=== PATIENT | female | born 1955 | race Caucasian/White ===

== ENCOUNTER 2016-11-28 14:09 | Emergency (ER) | payer OTHER ==
[2016-11-28] MEDS ORDERED: Ondansetron 4 MG/2 ML SDV IVPUSH ONE (14:41)
[2016-11-28] MEDS ORDERED: Sodium Chloride 0.9% 10 ML Syringe FLUSH PRN (14:41)
[2016-11-28] MEDS ORDERED: LORazepam 2 MG/ML MDV IVPUSH ONE (14:41)
[2016-11-28] MEDS ORDERED: HYDROmorphone 0.5 MG/0.5 ML Syringe IVPUSH ONE (14:41)
[2016-11-28] MEDS ORDERED: Sodium Chloride 0.9% 1,000 ML IV SCH (14:45)
--- NOTE | 2016-11-28 14:49 | EDM.PDOC ---
ED HISTORY OF PRESENT ILLNESS - General Chief Complaint: Cardiovascular Problem Stated Complaint: HIGH BP/HEADACHE Time Seen by Provider: 11/28/16 14:22 Source of Information: Reports: Patient History Limitations: Reports: No limitations - History of Present Illness INITIAL COMMENTS - FREE TEXT/NARRATIVE: Patient is a 61-year-old female who presents ED complaining of a headache, blurred vision, and left ear pain. Patient states she's been evaluated by her primary care provider yesterday for off and on cough since March of 2016. States they obtained a chest x-ray yesterday that was normal. They prescribed her oral prednisone and also albuterol inhaler. States they checked her blood pressure and noticed it to be elevated. This morning developed a headache described as moderate to severe located in the frontal aspect of her head that has now shifted back to the occipital region. She's had some mild blurred vision associated with the headache. In addition she has some throbbing sensation noted to the left ear. Pain is rated 8/10. She has no prior history of headaches. She states she never gets a headache. Describes his headache is the worst headache he's ever had. Denies any neuro deficits. States her eyes are sensitive to light and she's also mildly sensitive to noise. She's had no issues with walking, weakness, numbness or tingling, fever, chest pain, abdominal pain, diarrhea, or any additional complaints. Patient has a past medical history of hyperthyroidism and acid reflux. Patient takes omeprazole and levothyroxine as well albuterol and prednisone. Surgical history colonoscopy EGD, bladder surgery Primary care provider is Dr. Gonzalez. Timing/Duration: Reports: Constant Severity: severe Location, General: Reports: head (Occipital) Quality: Reports: Ache, Throbbing Improves with: Reports: None Worsens with: Reports: None Context, General: Reports: Other (None) Associated Symptoms (General): Reports: cough (Chronic cough for the past few months. Evaluated by primary care provider yesterday placed on prednisone and albuterol inhaler. No worsening today.), nausea/vomiting (Mild nausea after taking albuterol inhaler). Denies: chest pain, diaphoresis, fever/chills, loss of appetite, shortness of breath, syncope, weakness Treatments MANAGER RISK MANAGEMENT: Reports: Other (see below) (none stated) - Related Data Allergies/ADRs: Allergies Allergy/AdvReac Type Severity Reaction Status Date / Time acetaminophen [From Percocet] Allergy Hives Verified 11/28/16 14:21 cephalexin Allergy Shortness Verified 11/28/16 14:21 of Breath codeine Allergy Hives Verified 11/28/16 14:21 Latex, Natural Rubber Allergy Hives Verified 11/28/16 14:21 oxycodone HCl [From Percocet] Allergy Hives Verified 11/28/16 14:21 Sulfa (Sulfonamide Allergy Hives Verified 11/28/16 14:21 Antibiotics) Home Meds: Home Meds Levothyroxine 75 mcg PO DAILY 04/28/15 [History] Albuterol Sulfate [Proair Hfa] 2 puff INH Q4H PRN 11/28/16 [History] Prednisone [IJD: predniSONE] 40 mg PO DAILY 11/28/16 [History] Ranitidine [Zantac] 150 mg PO BEDTIME 11/28/16 [History] Social & Family History - Tobacco Use Smoking Status *Q: Never Smoker Second Hand Smoke Exposure: No - Alcohol Use Days Per Week of Alcohol Use: 0 - Recreational Drug Use Recreational Drug Use: No ED ROS GENERAL - Review of Systems Review Of Systems: See Below Constitutional: Denies: fever, chills, decreased appetite HEENT: Reports: Ear pain (left ear throbbing with onset of headache), Vision change (mild blurred vision). Denies: Eye pain Respiratory: Reports: Cough, Sputum. Denies: Shortness of Breath Cardiovascular: Denies: Chest pain, Blood pressure problem (no history), Dyspnea on exertion, Lightheadedness, Orthopnea, Palpitations, PND, Syncope GI/Abdominal: Reports: Nausea. Denies: Abdominal pain, Constipation, Diarrhea, Vomiting : Reports: no symptoms Musculoskeletal: Denies: neck pain, back pain Neurological: Reports: Headache. Denies: Confusion, Dizziness, Numbness, Paresthesia, Tingling, Trouble Speaking, Difficulty Walking, Weakness, Gait Disturbance ED EXAM, GENERAL - Physical Exam Exam: See Below Exam Limited By: No limitations General Appearance: alert, WD/WN, mild distress Eye Exam: bilateral eye: EOMI, PERRL Ears: normal external exam, normal canal, hearing grossly normal, normal TMs Nose: normal inspection, normal mucosa, no blood Throat/Mouth: Normal inspection, Normal oropharynx, Normal voice, No airway compromise Neck: normal inspection, supple, non-tender, full range of motion. No: lymphadenopathy (L), lymphadenopathy (R) Respiratory/Chest: no respiratory distress, lungs clear, normal breath sounds, no accessory muscle use Cardiovascular: normal peripheral pulses, regular rate, rhythm, no murmur Peripheral Pulses: 2+: radial (L), radial (R) GI/Abdominal: normal bowel sounds, soft, non tender, no organomegaly, no distention Extremities: normal inspection, normal range of motion, non-tender, no pedal edema Neurological: alert, oriented, CN II-XII intact, normal cognition, normal gait, no motor/sensory deficits, other (cerebellar function intact. no weakness note to upper/lower extremities. no facial droop/slurred speech. ) Psychiatric: normal affect, normal mood Skin Exam: Warm, Dry, Intact, Normal color, No rash Course - Vital Signs Last Recorded V/S: Last Vital Signs Temp 98.6 F 11/28/16 14:20 Pulse 82 11/28/16 14:20 Resp 26 H 11/28/16 14:20 BP 173/99 H 11/28/16 14:20 Pulse Ox 98 11/28/16 14:20 - Orders/Labs/Meds Orders: Active Orders 24 hr Category Date Time Status EKG Documentation Completion [RC] STAT Care 11/28/16 14:40 Active Peripheral IV Care [RC] . DIRECTED Care 11/28/16 14:41 Active UA W/MICROSCOPIC [URIN] Stat Lab 11/28/16 15:34 Uncollected Sodium Chloride 0.9% [Normal Saline] 1,000 ml Med 11/28/16 14:45 Active IV ASDIRECTED Sodium Chloride 0.9% [Saline Flush] Med 11/28/16 14:41 Active 10 ml FLUSH ASDIRECTED PRN Peripheral IV Insertion Adult [OM.PC] Stat Oth 11/28/16 14:40 Ordered Medication Orders Sodium Chloride (Normal Saline) 1,000 mls @ 50 mls/hr IV ASDIRECTED MICHELLE Last Admin: 11/28/16 15:11 Dose: 50 mls/hr Sodium Chloride (Saline Flush) 10 ml FLUSH ASDIRECTED PRN PRN Reason: Keep Vein Open Last Admin: 11/28/16 14:50 Dose: 10 ml Labs: Laboratory Tests 11/28/16 11/28/16 11/28/16 Range/Units 14:50 14:50 14:50 WBC 16.87 H (3.98-10.04) K/mm3 RBC 5.36 H (3.98-5.22) M/mm3 Hgb 14.7 (11.2-15.7) gm/L Hct 45.6 H (34.1-44.9) % MCV 85.1 (79.4-94.8) fl MCH 27.4 (25.6-32.2) pg MCHC 32.2 (32.2-35.5) g/dl RDW Std Deviation 46.3 (36.4-46.3) fL Plt Count 345 (182-369) K/mm3 MPV 9.3 L (9.4-12.3) fl Neut % (Auto) 79.3 H (34.0-71.1) % Lymph % (Auto) 13.2 L (19.3-51.7) % [place] % (Auto) 5.5 (4.7-12.5) % Eos % (Auto) 0.1 L (0.7-5.8) Baso % (Auto) 0.1 (0.1-1.2) % Neut # (Auto) 13.39 H (1.56-6.13) K/mm3 Lymph # (Auto) 2.23 (1.18-3.74) K/mm3 [place] # (Auto) 0.92 H (0.24-0.36) K/mm3 Eos # (Auto) 0.01 L (0.04-0.36) K/mm3 Baso # (Auto) 0.02 (0.01-0.08) K/mm3 Manual Slide Review Abnormal smear Sodium 141 (136-145) mEq/L Potassium 4.0 (3.5-5.1) mEq/L Chloride 104 (98-107) mEq/L Carbon Dioxide 24 (21-32) mEq/L Anion Gap 17.0 H (5-15) BUN 19 H (7-18) mg/dL Creatinine 0.9 (0.55-1.02) mg/dL Est Cr Clr Drug Dosing 59.07 mL/min Estimated GFR (MDRD) > 60 (>60) mL/min BUN/Creatinine Ratio 21.1 H (14-18) Glucose 125 H (80-115) mg/dL Calcium 9.7 (8.5-10.1) mg/dL Total Bilirubin 0.2 (0.2-1.0) mg/dL AST 14 L (15-37) U/L ALT 36 (14-59) U/L Alkaline Phosphatase 124 H (46-116) U/L Troponin I < 0.017 (0.00-0.056) ng/mL C-Reactive Protein 1.1 H* (<1.0) mg/dL Total Protein 7.9 (6.4-8.2) g/dl Albumin 3.9 (3.4-5.0) g/dl Globulin 4.0 gm/dL Albumin/Globulin Ratio 1.0 (1-2) TSH 3rd Generation 0.457 (0.358-3.74) uIU/mL Meds: Medications Generic Name Dose Route Start Last Admin Trade Name Freq PRN Reason Stop Dose Admin Sodium Chloride 1,000 mls @ 50 mls/hr 11/28/16 14:45 11/28/16 15:11 Normal Saline IV 50 mls/hr ASDIRECTED MICHELLE Administration Sodium Chloride 10 ml 11/28/16 14:41 11/28/16 14:50 Saline Flush FLUSH 10 ml ASDIRECTED PRN Administration Keep Vein Open Discontinued Medications Generic Name Dose Route Start Last Admin Trade Name Freq PRN Reason Stop Dose Admin Hydromorphone HCl 0.25 mg 11/28/16 14:41 11/28/16 15:09 Dilaudid IVPUSH 11/28/16 14:42 0.25 mg ONETIME ONE Administration Lorazepam 0.5 mg 11/28/16 14:41 11/28/16 15:07 Ativan IVPUSH 11/28/16 14:42 0.5 mg ONETIME ONE Administration Ondansetron HCl 4 mg 11/28/16 14:41 11/28/16 15:05 Zofran IVPUSH 11/28/16 14:42 4 mg ONETIME ONE Administration - Re-Assessments/Exams Free Text/Narrative Re-Assessment/Exam: Order peripheral IV with normal saline 50 mL per hour, Zofran 4 mg IVP, Dilaudid 0.25 mg IVP, and Ativan 0.5 mg IVP. Initial labs and studies include CBC, chem 14, CRP, troponin, EKG , and head CT without contrast. EKG revealed sinus rhythm 181 with normal P axis, no acute ST changes noted. 11/28/16 15:19 vital signs 150/93, heart rate 83. Reassessment, headache has improved with the above therapies. 11/28/16 15:34 CT head without contrast reviewed. No signs of intracranial hemorrhage present. Awaiting final interpretation. Labs reviewed: White blood cell count 16.87, hemoglobin 14.7, neutrophil percentage 79.3, neutrophil #13.39, sodium 141, potassium 4.0, creatinine 0.9, glucose 125, troponin within normal limits, CRP 1.1. UA was not collected. She has no urinary complaints. Patient recently started on prednisone 40 mg twice a day. She's had 3 doses. Believe the elevated white blood count associated with the prednisone. She currently does not show any signs of have any infectious condition. 11/28/16 15:45 11/28/16 16:44 CT of the head without contrast impression: No acute abnormalities identified on noncontrast head CT study. Reassessment: Patient is resting comfortably in bed with minimal complaints. Vital signs are stable. Will discharge patient home with instructions. Departure - Departure Time of Disposition: 16:53 Disposition: Home, Self-Care 01 Condition: good Clinical Impression: Headache Qualifiers: Headache type: unspecified Headache chronicity pattern: acute headache Intractability: not intractable Qualified Code(s): R51 - Headache Referrals: Orlando Gonzalez Jr, MD [Primary Care Provider] - Forms: ED Department Discharge Additional Instructions: Blood pressure has come down drastically with treating your headache. Unknown why you developed a headache today with no known history. It was relieved with pain medications. Suggest taking Tylenol and ibuprofen in alternating fashion for headache. Refrain from driving today since receiving a sedative medication in the ED. Will have you followup with your primary care provider in the next few days for reevaluation if headache persist. In addition the white blood count was mildly elevated. This could be related to starting prednisone therapy. If you develop worsening cough, increased SOB, fever/chills, please return back to the ED or see her primary care provider. Return back to the ED for worsening headach, numbness or tingling, weakness, change in mentation, or any additional neurological deficits. - My Orders Last 24 Hours: My Active Orders 11/28/16 14:40 EKG Documentation Completion [RC] STAT Peripheral IV Insertion Adult [OM.PC] Stat 11/28/16 14:41 Peripheral IV Care [RC] . DIRECTED Sodium Chloride 0.9% [Saline Flush] 10 ml FLUSH ASDIRECTED PRN 11/28/16 14:45 Sodium Chloride 0.9% [Normal Saline] 1,000 ml IV ASDIRECTED 11/28/16 15:34 UA W/MICROSCOPIC [URIN] Stat - Assessment/Plan Last 24 Hours: My Active Orders 11/28/16 14:40 EKG Documentation Completion [RC] STAT Peripheral IV Insertion Adult [OM.PC] Stat 11/28/16 14:41 Peripheral IV Care [RC] . DIRECTED Sodium Chloride 0.9% [Saline Flush] 10 ml FLUSH ASDIRECTED PRN 11/28/16 14:45 Sodium Chloride 0.9% [Normal Saline] 1,000 ml IV ASDIRECTED 11/28/16 15:34 UA W/MICROSCOPIC [URIN] Stat
--- NOTE | 2016-11-28 16:12 | CT ---
Head CT Technique: Multiple axial sections through the brain were obtained. Intravenous contrast was not utilized. Comparison: Previous MR angiogram exam of 11/30/12, no previous study. Findings: Ventricles along with basal cisterns and sulci over the convexities are within normal limits for the patient's age. No abnormal parenchymal densities are seen. No evidence of intracranial hemorrhage. No midline shift or mass effect is seen. Bone window settings were reviewed which shows the visualized sinuses to appear clear. No acute calvarial abnormality is seen. Impression: 1. No acute abnormality is identified on noncontrast head CT study. Diagnostic code #1
[2016-11-28 17:33] VITALS: BP 128/80
== END 2016-11-28 17:30 | disposition home or self-care (01) ==
LOC: JD.ED 14:09
DX: R51 Headache (principal); Z88.6 Allergy status to analgesic agent; Z88.2 Allergy status to sulfonamides; Z79.899 Other long term (current) drug therapy; Z91.040 Latex allergy status; Z88.5 Allergy status to narcotic agent
CPT/HCPCS: 36415; 70450; 80053; 81001; 84443; 84484; 85025; 86140; 93005; 96361; 96374; 96375; 99285; J1170; J2060; J2405; J7040; J7050

== ENCOUNTER 2017-09-20 14:31 | Emergency (ER) | payer OTHER ==
[2017-09-20] MEDS ORDERED: Haloperidol Lactate 5 MG/ML SDV IM ONE (15:19)
[2017-09-20] MEDS ORDERED: Benztropine 1 MG Tab PO STA (15:19)
[2017-09-20] MEDS ORDERED: Sodium Chloride 0.9% 1,000 ML IV ONE (15:19)
[2017-09-20] MEDS ORDERED: Ondansetron 4 MG/2 ML SDV IVPUSH ONE (15:19)
--- NOTE | 2017-09-20 17:20 | EDM.PDOC ---
ED HPI GENERAL MEDICAL PROBLEM - General Chief Complaint: Respiratory Problem Stated Complaint: HIGH BLOOD PRESSURE/SOB Time Seen by Provider: 09/20/17 14:47 Source of Information: Reports: Patient, Family () History Limitations: Reports: No Limitations - History of Present Illness INITIAL COMMENTS - FREE TEXT/NARRATIVE: The patient states that she has had a dry cough for the past 10 days, including wheezing. No recent fever. The patient states that she has a history of asthma, although on further questioning, she has never seen a Advertising Inserter, and has never undergone pulmonary function tests. She states that she did not become symptomatic until her late 30s. She states that she has been taking her previously prescribed Atrovent twice a day, although not for the past 2 days, as it was not helping. She also states that she has been taking previously prescribed Tessalon pearls, although not for the past 2 days, as they have not helped at all. She states that she is allergic to albuterol, that it causes her blood pressure to rise too much. She also reports seeing yellow lines today around 12:00 noon, and seeing things as if they were from a distance, which she has difficulty explaining. She has had slight nausea, and initially denied having a headache, however, towards the end of my interview, she developed a sharp headache primarily in the left samaritan region. She denied having any tingling, numbness, or weakness, however, she did report feeling shaky. No recent emesis or constipation. She has occasional diarrhea. No urinary symptoms. The patient was seen at the clinic, sent here due to elevated blood pressure. Here in the ED, her BP is 180/97 with a HR of 82 and is afebrile, saturating 99 % on room air. The patient does not have a history of hypertension. The patient did not receive an influenza vaccine this season. The patient's PCP is Dr. Orlando Gonzalez. - Related Data Allergies Allergy/AdvReac Type Severity Reaction Status Date / Time acetaminophen [From Percocet] Allergy Hives Verified 09/20/17 14:43 albuterol Allergy Nausea Verified 09/20/17 14:43 cephalexin Allergy Shortness Verified 09/20/17 14:43 of Breath codeine Allergy Hives Verified 09/20/17 14:43 Latex, Natural Rubber Allergy Hives Verified 09/20/17 14:43 oxycodone HCl [From Percocet] Allergy Hives Verified 09/20/17 14:43 Sulfa (Sulfonamide Allergy Hives Verified 09/20/17 14:43 Antibiotics) Home Meds: Home Meds Levothyroxine 75 mcg PO DAILY 04/28/15 [History] Albuterol Sulfate [Proair Hfa] 2 puff INH Q4H PRN 11/28/16 [History] Prednisone [IJD: predniSONE] 40 mg PO DAILY 11/28/16 [History] Ranitidine [Zantac] 150 mg PO BEDTIME 11/28/16 [History] Prednisone [IJD: predniSONE] 20 mg PO QPM #5 tab 09/20/17 [Rx] Rizatriptan [Maxalt [employer] MAKER] 1 tab PO Q2H PRN #3 tab.dis 09/20/17 [Rx] Past Medical History HEENT History: Reports: Impaired Vision Other HEENT History: wears contacts. Respiratory History: Reports: Asthma (Suspected, not confirmed) Gastrointestinal History: Reports: GERD RADIOLOGY RECEPTIONIST History: Reports: Musculoskeletal History: Reports: Fracture Neurological History: Reports: Concussion Endocrine/Metabolic History: Reports: Hypothyroidism, Obesity/BMI 30+ - Infectious Disease History Infectious Disease History: Reports: Chicken Pox, Measles, Mumps - Past Surgical History HEENT Surgical History: Reports: Oral Surgery ([place] teeth extraction) GI Surgical History: Reports: Appendectomy Female Surgical History: Reports: D&C (x 2), Hysterectomy, Other (See Below) (Bladder suspension) Social & Family History - Tobacco Use Smoking Status *Q: Never Smoker Second Hand Smoke Exposure: No - Caffeine Use Caffeine Use: Reports: Soda, Tea - Alcohol Use Alcohol Use History: No Days Per Week of Alcohol Use: 0 - Recreational Drug Use Recreational Drug Use: No - Living Situation & Occupation Living situation: Reports: , with Spouse 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 ED EXAM, GENERAL - Physical Exam Exam: See Below Exam Limited By: No Limitations General Appearance: Alert, WD/WN, No Apparent Distress Eye Exam: Bilateral Eye: Normal Inspection Ears: Normal External Exam, Hearing Grossly Normal Nose: Normal Inspection, No Blood Throat/Mouth: Normal Inspection, Normal Lips, Normal Voice, No Airway Compromise Head: Atraumatic, Normocephalic Neck: Normal Inspection, Full Range of Motion Respiratory/Chest: No Respiratory Distress, No Accessory Muscle Use, Chest Non- Tender, Wheezing (Faint, expiratory. Good overall air movement.). No: Respiratory Distress, Decreased Breath Sounds, Crackles, Rhonchi, Prolonged Expiration Cardiovascular: Normal Peripheral Pulses, Regular Rate, Rhythm, No Edema, No Gallop, No JVD, No Murmur, No Rub Peripheral Pulses: 4+: Radial (L), Radial (R) GI/Abdominal: Normal Bowel Sounds, Soft, Non-Tender, No Organomegaly, No Distention, No Abnormal Bruit, No Mass, Other (Obese) (Female) Exam: Deferred Rectal (Female) Exam: Deferred Back Exam: Normal Inspection, Full Range of Motion, NT Extremities: Normal Inspection, Normal Range of Motion, No Pedal Edema, Normal Capillary Refill Neurological: Alert, Oriented, Normal Cognition, No Motor/Sensory Deficits Psychiatric: Normal Affect Skin Exam: Warm, Dry, Intact, Normal Color, No Rash Course - Vital Signs Last Recorded V/S: Last Vital Signs Temp 35.9 C 09/20/17 14:43 Pulse 76 09/20/17 18:10 Resp 20 09/20/17 18:10 BP 159/95 H 09/20/17 18:10 Pulse Ox 98 09/20/17 18:10 - Orders/Labs/Meds Orders: Active Orders 24 hr Category Date Time Status Chest 2V [CR] Stat Exams 09/20/17 15:16 Taken Labs: Laboratory Tests 09/20/17 09/20/17 09/20/17 Range/Units 15:40 15:40 15:40 WBC 6.75 (3.98-10.04) K/mm3 RBC 4.92 (3.98-5.22) M/mm3 Hgb 13.5 (11.2-15.7) gm/L Hct 42.5 (34.1-44.9) % MCV 86.4 (79.4-94.8) fl MCH 27.4 (25.6-32.2) pg MCHC 31.8 L (32.2-35.5) g/dl RDW Std Deviation 48.1 H (36.4-46.3) fL Plt Count 256 (182-369) K/mm3 MPV 9.7 (9.4-12.3) fl Neutrophils % (Manual) 52 (40-60) % Band Neutrophils % 0 (0-10) % Lymphocytes % (Manual) 44 H (20-40) % Atypical Lymphs % 0 % Monocytes % (Manual) 3 (2-10) % Eosinophils % (Manual) 0 L (0.7-5.8) % Basophils % (Manual) 1 (0.1-1.2) Platelet Estimate Adequate Plt Morphology Comment Normal Anisocytosis 1+ slight RBC Morph Comment Not Reportable PT 9.5 (8.0-13.0) SECONDS INR 0.88 APTT 25 (22-36) SECONDS D-Dimer, Quantitative 0.57 (0.19-0.59) mg/L Sodium 141 (136-145) mEq/L Potassium 3.9 (3.5-5.1) mEq/L Chloride 107 (98-107) mEq/L Carbon Dioxide 22 (21-32) mEq/L Anion Gap 15.9 H (5-15) BUN 15 (7-18) mg/dL Creatinine 0.8 (0.55-1.02) mg/dL Est Cr Clr Drug Dosing 62.96 mL/min Estimated GFR (MDRD) > 60 (>60) mL/min BUN/Creatinine Ratio 18.8 H (14-18) Glucose 84 (80-115) mg/dL Calcium 8.6 (8.5-10.1) mg/dL Total Bilirubin 0.3 (0.2-1.0) mg/dL AST 22 (15-37) U/L ALT 42 (14-59) U/L Alkaline Phosphatase 95 (46-116) U/L Total Protein 7.0 (6.4-8.2) g/dl Albumin 3.6 (3.4-5.0) g/dl Globulin 3.4 gm/dL Albumin/Globulin Ratio 1.1 (1-2) Meds: Medications Discontinued Medications Generic Name Dose Route Start Last Admin Trade Name Freq PRN Reason Stop Dose Admin Benztropine Mesylate 1 mg 09/20/17 15:19 09/20/17 16:00 Cogentin PO 09/20/17 15:20 1 mg ONETIME STA Administration Haloperidol Lactate 5 mg 09/20/17 15:19 09/20/17 16:00 Haldol IM 09/20/17 15:20 5 mg ONETIME ONE Administration Sodium Chloride 1,000 mls @ 999 mls/hr 09/20/17 15:19 09/20/17 15:50 Normal Saline IV 09/20/17 16:19 999 mls/hr ONETIME ONE Administration Ondansetron HCl 4 mg 09/20/17 15:19 09/20/17 16:00 Zofran IVPUSH 09/20/17 15:20 4 mg ONETIME ONE Administration Prednisone 60 mg 09/20/17 17:27 09/20/17 18:03 Prednisone PO 09/20/17 17:28 60 mg ONETIME STA Administration - Re-Assessments/Exams Free Text/Narrative Re-Assessment/Exam: 09/20/17 16:22 Two-view chest radiograph appears to be grossly normal. Cardiac silhouette is within normal limits. No pulmonary vascular congestion. No pleural effusions. No focal infiltrate. No pneumothorax. Formal read per the Radiologist pending. 09/20/17 17:15 Test results discussed with the patient and her . The patient reports complete resolution of her headache, nausea, and visual changes following IM Haldol. This strongly suggests that the patient's symptoms were due to a migraine. I will prescribe Maxalt, and have her follow-up with her PCP, Dr. Orlando Gonzalez. With respect to the patient's cough, her chest x-ray is negative, her influenza swab returned negative, and she does not have an elevated WBC count, however, she is wheezing on auscultation. The patient MAY have asthma, however, I'm recommending pulmonary function tests to be sure. In the meantime, I will prescribe a five-day course of oral prednisone. Departure - Departure Time of Disposition: 17:15 Disposition: Home, Self-Care 01 Condition: Good, Fair Clinical Impression: Migraine headache with aura, Cough - Discharge Information Prescriptions: Prednisone [IJD: predniSONE] 20 mg PO QPM #5 tab Rizatriptan [Maxalt [employer] MAKER] 1 tab PO Q2H PRN #3 tab.dis PRN Reason: Headache/Pain Instructions: Migraine Headache, [id number], Cough, Adult, [id number] Referrals: Orlando Gonzalez Jr, MD [Primary Care Provider] - Forms: ED Department Discharge Additional Instructions: You were seen in the emergency room for a cough with wheezing, seeing yellow lines, slight nausea, and feeling shaky. You developed a headache in the ER. Workup in the ER included blood work, a chest x-ray, and an influenza swab. Your entire workup was unremarkable. You do not have pneumonia. He did not have influenza. He did not have a blood clot in your lungs. The cause of your respiratory symptoms is not clear, but MAY be due to asthma. You have been started on the steroid prednisone. Take one tablet every evening, with food, starting tomorrow night, 09/21/2017. While on prednisone, DO NOT also take NSAIDs, such as aspirin, ibuprofen, or Aleve. Your headache, nausea, and visual changes completely resolved following an injection of an anti-migraine medicine. This strongly suggests that the symptoms you were feeling were due to a migraine headache. You have been prescribed the anti-migraine medicine Maxalt. Dissolve 1 tablet in your mouth at the earliest symptoms of a migraine, including nausea, visual changes, tingling/numbness, or headache. You may repeat after 2 hours, total maximum of 3 tablets within a 24-hour period. If this medicine works for you, talk to Dr. Gonzalez about further prescriptions. Get plenty of rest tonight, and stay well hydrated. If any other problems, please do not hesitate to return to the ER. - My Orders Last 24 Hours: My Active Orders 09/20/17 15:16 Chest 2V [CR] Stat - Assessment/Plan Last 24 Hours: My Active Orders 09/20/17 15:16 Chest 2V [CR] Stat
[2017-09-20] MEDS ORDERED: predniSONE 20 MG Tab PO STA (17:27)
[2017-09-20 18:15] VITALS: BP 159/95
--- NOTE | 2017-09-21 06:53 | CR ---
Chest: Two views of the chest were obtained. Comparison: No prior chest x-ray. Heart size is normal. Tortuous thoracic aorta is seen. Lungs are clear. Minimal scoliosis is noted. Impression: 1. Nothing acute is seen on two-view chest x-ray. Diagnostic code #2
== END 2017-09-20 18:10 | disposition home or self-care (01) ==
LOC: JD.ED 14:31
DX: G43.109 Migraine with aura, not intractable, without status migrainosus (principal); E03.9 Hypothyroidism, unspecified; Z88.1 Allergy status to other antibiotic agents; Z88.5 Allergy status to narcotic agent; Z91.040 Latex allergy status; Z88.2 Allergy status to sulfonamides; Z79.899 Other long term (current) drug therapy
CPT/HCPCS: 36415; 71046; 80053; 85025; 85379; 85610; 85730; 87804; 96361; 96372; 96374; 99285; A9270; J1630; J2405; J7040; 99284

== ENCOUNTER 2021-11-13 15:14 | Emergency (ER) | payer OTHER ==
[2021-11-13 15:24] VITALS: BP 183/79; PULSE 79
[2021-11-13] MEDS ORDERED: Sodium Chloride 0.9% 1,000 ML IV ONE (16:11)
== END 2021-11-13 18:05 | disposition home or self-care (01) ==
LOC: JD.ED 15:14
DX: R55 Syncope and collapse (principal); E03.9 Hypothyroidism, unspecified; K21.9 Gastro-esophageal reflux disease without esophagitis; E66.9 Obesity, unspecified; Z68.39 Body mass index [BMI] 39.0-39.9, adult; Z88.5 Allergy status to narcotic agent; Z91.040 Latex allergy status; Z88.8 Allergy status to other drugs, medicaments and biological substances; Z88.1 Allergy status to other antibiotic agents; Z88.2 Allergy status to sulfonamides; Z79.899 Other long term (current) drug therapy
CPT/HCPCS: 36415; 80053; 83735; 84484; 85025; 85610; 93005; 99284; J7030; 93010

== ENCOUNTER 2023-02-01 19:30 | Emergency (ER) | payer BC, OTHER ==
[2023-02-01] MEDS ORDERED: Aluminum Hydroxide/Magnesium Hydroxide/Simethicone Susp 30 ML Cup PO ONE (20:05)
[2023-02-01] MEDS ORDERED: Sucralfate Suspension 1 GM/10 ML Cup PO ONE (20:05)
[2023-02-01] MEDS ORDERED: Sodium Chloride 0.9% 1,000 ML IV SCH (20:15)
[2023-02-01] MEDS ORDERED: Famotidine 20 MG/2 ML SDV IVPUSH STA (20:27)
[2023-02-01 20:36] LABS: BASOPHILS ABSOLUTE AUTO 0.04 K/mm3 (0.01-0.08); BASOPHILS PERCENT AUTO 0.4 % (0.1-1.2); EOSINOPHILS ABSOLUTE AUTO 0.05 K/mm3 (0.04-0.36); EOSINOPHILS PERCENT AUTO 0.6 (0.7-5.8); HEMATOCRIT 46.1 % (34.1-44.9); HEMOGLOBIN 14.9 gm/dl (11.2-15.7); IMMATURE GRAN ABSOLUTE AUTO 0.02 K/mm3 (0.00-0.10); IMMATURE GRAN PERCENT AUTO 0.2 % (<=1.0); LYMPHOCYTES ABSOLUTE AUTO 2.04 K/mm3 (1.18-3.74); LYMPHOCYTES PERCENT AUTO 22.5 % (19.3-51.7); MEAN CORPUSCULAR HEMOGLOBIN 27.8 pg (25.6-32.2); MEAN CORPUSCULAR HGB CONC 32.3 g/dl (32.2-35.5); MEAN PLATELET VOLUME 9.9 fl (9.4-12.3); MONOCYTES ABSOLUTE AUTO 0.75 K/mm3 (0.24-0.36); MONOCYTES PERCENT AUTO 8.3 % (4.7-12.5); NEUTROPHILS ABSOLUTE AUTO 6.15 K/mm3 (1.56-6.13); PLATELET COUNT,PLT 312 K/mm3 (182-369); RED BLOOD CELL COUNT 5.36 M/mm3 (3.98-5.22); WHITE BLOOD CELL COUNT,WBC 9.05 K/mm3 (3.98-10.04)
[2023-02-01 20:55] LABS: PROTHROMBIN TIME 9.5 SECONDS (9.7-12.0)
[2023-02-01 20:57] LABS: PTT,PARTIAL THROMBOPLSTIN TIME 21.3 SECONDS (21.7-31.4)
[2023-02-01 20:59] LABS: D-DIMER QUANTITATIVE 0.68 mg/L (0.19-0.50); INR < 0.93
[2023-02-01 21:02] LABS: ALBUMIN 3.7 g/dl (3.4-5.0); BILIRUBIN TOTAL 0.8 mg/dL (0.2-1.0); CALCIUM 9.4 mg/dL (8.5-10.1); EST CRCL DRUG DOSING (CG) 47.14 mL/min; MAGNESIUM 2.3 mg/dL (1.8-2.4); PROTEIN TOTAL,TP 7.4 g/dl (6.4-8.2)
[2023-02-01] MEDS ORDERED: Ondansetron 4 MG/2 ML SDV IVPUSH ONE (21:34)
[2023-02-01] MEDS ORDERED: HYDROmorphone 0.5 MG/0.5 ML Syringe IVPUSH ONE (21:42)
[2023-02-02 00:14] VITALS: BP 157/87; PULSE 79
== END 2023-02-02 00:10 | disposition home or self-care (01) ==
LOC: JD.ED 19:30
DX: K21.9 Gastro-esophageal reflux disease without esophagitis (principal); R79.89 Other specified abnormal findings of blood chemistry; E03.9 Hypothyroidism, unspecified; E66.9 Obesity, unspecified; Z68.39 Body mass index [BMI] 39.0-39.9, adult; Z86.16 Personal history of COVID-19; Z88.6 Allergy status to analgesic agent; Z88.8 Allergy status to other drugs, medicaments and biological substances; Z88.1 Allergy status to other antibiotic agents; Z88.5 Allergy status to narcotic agent; Z91.040 Latex allergy status; Z88.2 Allergy status to sulfonamides; Z88.7 Allergy status to serum and vaccine; Z79.899 Other long term (current) drug therapy
CPT/HCPCS: 36415; 71260; 74177; 76705; 80053; 83690; 83735; 84484; 85025; 85379; 85610; 85730; 93005; 96374; 96375; 99285; A9270; J1170; J2405; J3490; J7030; 93010; 99284